=== PATIENT | male | born 1985 | race Caucasian/White ===

== ENCOUNTER 2020-09-01 15:25 | Emergency (ER) | payer SELFPAY ==
[~2020-09-01] VITALS: Ht 175.3 cm; Wt 68.0 kg
[2020-09-01 15:26] VITALS: BP 127/76
--- NOTE | 2020-09-01 15:29 | NUR ---
Pt taken to ER 7.
--- NOTE | 2020-09-01 15:38 | NUR ---
34 Y/O MALE C/O LEFT FOREARM PAIN 11/29 DESCRIBES ACHING AND BURNING NON-RADIATING [id number] AGO. PT STATES HE WAS BITTEN BY HIS DIVEHI TAPIA DOG AT HOME. LARGE DEEP LAC TO LEFT FA NO ACTIVE BLEEDING AT THIS TIME. ABRASIONS NOTED TO RIGHT FA AND RIGHT SIDE OF CHEST WITH SCATTERED RED SCRATCHES TO GENERALIZED PART OF CHEST. PT UNABLE TO RECALL WHEN HIS LAST TDAP WAS, UNABLE TO RECALL IF DOG IS UPD WITH VACCINATIONS. DENIES FEVER/CHILLS, DENIES N/V. PT STATES HE FEELS SOB, SPO2 99% RA. MADE AWARE. DENIES [facility]
[2020-09-01] MEDS ORDERED: LIDOCAINE MPF 1% 10 MG/ML VIAL INJ ONE ×3 (15:50→16:35)
[2020-09-01] MEDS ORDERED: MORPHINE SULFATE 4 MG/ML SYR IM ONE (15:50)
--- NOTE | 2020-09-01 16:05 | NUR ---
EVAN Pandey at pt bedside for procedure.
[2020-09-01] MEDS ORDERED: LIDOCAINE MPF 1% 5 ML ONE ×2 (16:19→16:33)
--- NOTE | 2020-09-01 16:32 | NUR ---
Dr. Phoenix is evaluating the patient at bedside.
[2020-09-01] MEDS ORDERED: AMOXIL/CLAVULANATE 875/125 MG 1 TAB PO ONE (16:50)
[2020-09-01] MEDS ORDERED: IBUP-2213 PO (16:55)
[2020-09-01] MEDS ORDERED: AMOX1TAB8 PO (16:55)
[2020-09-01 17:14] VITALS: BP 127/76
--- NOTE | 2020-09-01 17:14 | NUR ---
Patient discharged with v/s stable. Written and verbal after care instructions given and explained. Patient alert, oriented and verbalized understanding of instructions. Ambulatory with steady gait. All questions addressed prior to discharge. ID band removed. Patient advised to follow up with PMD. Rx of augmentin 875mg PO BID, and ibuprofen 600mg PO TID prn pain given. Patient educated on indication of medication including possible reaction and side effects. Opportunity to ask questions provided and answered.
--- NOTE | 2020-09-01 17:15 | NUR ---
APPLIED DRESSING TO LEFT ARM WITHOUT ANY ISSUES
== END 2020-09-01 17:14 | disposition home or self-care (01) ==
LOC: MED 15:25
DX: S51.852A Open bite of left forearm, initial encounter (principal); W54.0XXA Bitten by dog, initial encounter; Y93.89 Activity, other specified; Y92.89 Other specified places as the place of occurrence of the external cause; Y99.8 Other external cause status
CPT/HCPCS: 12004; 96372; 99284; J2001; J2270

== ENCOUNTER 2020-09-14 08:33 | Emergency (ER) | payer SELFPAY ==
[~2020-09-14] VITALS: Ht 175.3 cm; Wt 68.0 kg
[~2020-09-14 08:33] MED LIST: AMOX1TAB8 PO; IBUP-2213 PO
[2020-09-14 08:37] VITALS: BP 131/84
--- NOTE | 2020-09-14 08:41 | NUR ---
Pt ambulated to ER bed 11.
--- NOTE | 2020-09-14 08:45 | NUR ---
34 Y/O MALE HERE FOR SUTURE REMOVAL RECHECK. PT STATES HE WAS BITTEN BY HIS [place]VI[place] TAPIA DOG AT HOME [id number] AGO TO LEFT FA. SUTURES INTACT, SLIGHT ERYTHEMA, NO ACTIVE BLEEDING AT THIS TIME. DENIES FEVER/CHILLS, DENIES N/V. DENIES [facility] NKA
--- NOTE | 2020-09-14 08:48 | NUR ---
Dr. Mendoza at pt bedside for further evaluation.
[2020-09-14] MEDS ORDERED: MUPI2CRE22 TP (08:53)
[2020-09-14] MEDS ORDERED: BACITRACIN OINT 500 UNITS/GM PKT TP ONE ×2 (08:59→09:00)
[2020-09-14 09:05] VITALS: BP 131/84
--- NOTE | 2020-09-14 09:05 | NUR ---
Patient discharged with v/s stable. Written and verbal after care instructions given and explained. Patient alert, oriented and verbalized understanding of instructions. Ambulatory with steady gait. All questions addressed prior to discharge. ID band removed. Patient advised to follow up with PMD. Rx of Mupirocin Calcium given. Patient educated on indication of medication including possible reaction and side effects. Opportunity to ask questions provided and answered.
== END 2020-09-14 09:05 | disposition home or self-care (01) ==
LOC: MED 08:33
DX: S41.112D Laceration without foreign body of left upper arm, subsequent encounter (principal); Z79.899 Other long term (current) drug therapy; X58.XXXD Exposure to other specified factors, subsequent encounter
CPT/HCPCS: 99282